=== PATIENT | male | born 1985 | race African-American/Black ===

== ENCOUNTER 2025-03-30 07:31 | Emergency (ER) | payer SELFPAY ==
[~2025-03-30] VITALS: Ht 172.7 cm; Wt 75.0 kg
[2025-03-30 07:36] VITALS: O2SAT 98
[2025-03-30] MEDS ORDERED: MAGNESIUM/ALUMINUM HYDROXIDE/SIMETHICONE 30ML UDC PO ONE (08:00)
[2025-03-30] MEDS ORDERED: ONDANSETRON HCL 4MG/2ML INJ IV ONE (08:00)
[2025-03-30] MEDS ORDERED: FAMOTIDINE 20MG/2ML VIAL IV ONE (08:00)
[2025-03-30] MEDS ORDERED: VISCOUS LIDOCAINE 2% 15 ML UDC MM ONE (08:00)
[2025-03-30] MEDS: ACETAMINOPHEN 1000MG/100ML 100 ML IV ONE (08:11)
[2025-03-30] MEDS: ONDANSETRON HCL 4MG/2ML INJ IV NR (08:12)
[2025-03-30] MEDS: MAGNESIUM/ALUMINUM HYDROXIDE/SIMETHICONE 30ML UDC PO NR (08:12)
[2025-03-30] MEDS: VISCOUS LIDOCAINE 2% 15 ML UDC MM NR (08:12)
[2025-03-30] MEDS: FAMOTIDINE 20MG/2ML VIAL IV NR (08:12)
[2025-03-30 08:21] LABS: BASOPHILS % 0.6 % (0.0-2.0); EOSINOPHILS % 0.6 % (0.0-5.0); HEMATOCRIT. 39.0 % (42.0-52.0); HEMOGLOBIN. 12.8 g/dL (14.0-18.0); LYMPHOCYTES % 11.7 % (20.0-50.0); MEAN PLATELET VOLUME 7.4 fl (7.4-10.4); MONOCYTES % 8.7 % (2.0-8.0); NEUTROPHILS % 78.4 % (40.0-76.0); PLATELET 196 x1000/uL (130-400); RED BLOOD CELL COUNT 4.42 mill/uL (4.7-6.1); RED CELL DISTRIBUTION WIDTH 13.7 % (11.6-14.6)
[2025-03-30 08:53] LABS: CREATININE 1.4 mg/dL (0.6-1.3); UREA NITROGEN BLOOD 13 mg/dL (9-23)
[2025-03-30 08:59] LABS: INFLUENZA TYPE A Presumptive Negative (Pres. Neg.); INFLUENZA TYPE B Presumptive Negative (Pres. Neg.)
[2025-03-30] MEDS: MORPHINE SULFATE 4 MG/ML INJ (FOR IV/IM USE) IV ONE (09:11)
[2025-03-30] MEDS ORDERED: ONDA4TAB50 PO (11:33)
[2025-03-30 12:09] VITALS: BP 100/47; PULSE 87; RESP 13; TEMP 37.1; O2SAT 97
== END 2025-03-30 12:12 | disposition home or self-care (01) ==
LOC: ER 07:31 → EDBEDREQ 10:39 → EDBEDREQTM 10:39 → CANBEDREQ 11:45 → ER 12:12
DX: K52.9 Noninfective gastroenteritis and colitis, unspecified (principal); Z20.822 Contact with and (suspected) exposure to COVID-19
CPT/HCPCS: 99285; 74176; 96365; 96375; 71045; 87426; 80048; 85025; 87804 ×2; 36415; J1308; J2405; J2270; J0131

== ENCOUNTER 2025-03-31 15:21 | Inpatient (IN) | payer SELFPAY ==
[~2025-03-31] VITALS: Ht 152.4 cm; Wt 81.6 kg
[~2025-03-31 15:21] MED LIST: ONDA4TAB50 PO
[2025-03-31 15:31] VITALS: O2SAT 100
[2025-03-31 17:20] LABS: CLARITY URINE CLEAR (CLEAR); COLOR URINE YELLOW (YELLOW); GLUCOSE URINE NEGATIVE (NEGATIVE); KETONES URINE 1+ (NEGATIVE); LEUKOCYTE ESTERASE URINE NEGATIVE (NEGATIVE); NITRITE URINE NEGATIVE (NEGATIVE); OCCULT BLOOD URINE 1+ (NEGATIVE); PH URINE 6.0 (4.5-8.0); PROTEIN URINE 1+ (NEGATIVE); SPECIFIC GRAVITY URINE 1.030 (1.005-1.030); UROBILINOGEN URINE 0.2 E.U./dL (0.2-1.0)
[2025-03-31 18:07] LABS: BASOPHILS % 0.9 % (0.0-2.0); EOSINOPHILS % 0.1 % (0.0-5.0); HEMATOCRIT. 37.6 % (42.0-52.0); HEMOGLOBIN. 12.3 g/dL (14.0-18.0); LYMPHOCYTES % 17.1 % (20.0-50.0); MEAN PLATELET VOLUME 7.6 fl (7.4-10.4); MONOCYTES % 12.1 % (2.0-8.0); NEUTROPHILS % 69.8 % (40.0-76.0); PLATELET 134 x1000/uL (130-400); RED BLOOD CELL COUNT 4.25 mill/uL (4.7-6.1); RED CELL DISTRIBUTION WIDTH 13.9 % (11.6-14.6)
[2025-03-31 18:24] LABS: CREATININE 1.5 mg/dL (0.6-1.3)
[2025-03-31 18:25] LABS: UREA NITROGEN BLOOD 10 mg/dL (9-23)
[2025-03-31] MEDS: MAGNESIUM/ALUMINUM HYDROXIDE/SIMETHICONE 30ML UDC PO ONE (18:25)
[2025-03-31] MEDS: ONDANSETRON HCL 4MG/2ML INJ IV ONE (18:56)
[2025-03-31] MEDS: FAMOTIDINE 20MG/2ML VIAL IV ONE (18:57)
[2025-03-31 19:25] LABS: INFLUENZA TYPE A Detected (Pres. Neg.); INFLUENZA TYPE B Presumptive Negative (Pres. Neg.)
[2025-03-31 19:26] LABS: RESPIRATORY SYNCYTIAL VIRUS Not Detected (Not Detectd)
[2025-03-31 20:00] LABS: WBC URINE NONE SEEN /hpf (0-2)
[2025-03-31 20:01] LABS: BACTERIA URINE 1+; SQUAMOUS EPITHELIAL CELL URINE FEW /lpf (RARE/1+)
[2025-03-31] MEDS: LACTATED RINGERS 1,000 ML IV ONE (20:16)
[2025-03-31] MEDS: ACETAMINOPHEN 1000MG/100ML 100 ML IV ONE (20:16)
[2025-03-31 20:49] LABS: PROTEIN TOTAL 7.1 g/dL (6.0-8.3)
[2025-03-31 20:51] LABS: ASPARTATE AMINOTRANSFERASE 53 IU/L (<34); BILIRUBIN DIRECT 0.1 mg/dL (<=3.0); BILIRUBIN TOTAL 0.4 mg/dL (0.1-1.0)
[2025-04-01] MEDS ORDERED: HYDROCODONE/ACETAMINOPHEN 5/325MG TABLET PO PRN
[2025-04-01] MEDS ORDERED: ACETAMINOPHEN 650MG/20.3ML UDC PO PRN
[2025-04-01] MEDS: SODIUM CHLORIDE 0.9% 1,000 ML IV SCH
[2025-04-01] MEDS ORDERED: ONDANSETRON HCL 4MG TABLET PO PRN
[2025-04-01 00:18] VITALS: BP 124/77; PULSE 65; RESP 16; TEMP 36.9184
[2025-04-01] MEDS ORDERED: NALOXONE HCL 0.4MG/ML VIAL IV PRN ×2 (01:00→13:45)
[2025-04-01] MEDS: ACETAMINOPHEN 325MG TABLET PO PRN (01:03)
[2025-04-01 08:00] VITALS: BP 113/70; PULSE 60; RESP 18; TEMP 35.6; O2SAT 96
[2025-04-01 08:48] LABS: *AMPHETAMINES SCREEN URINE NEGATIVE (NEGATIVE); *BARBITURATES SCREEN URINE NEGATIVE (NEGATIVE); *BENZODIAZEPINES SCREEN URINE NEGATIVE (NEGATIVE); *COCAINE SCREEN URINE NEGATIVE (NEGATIVE); METHADONE URINE SCREEN NEGATIVE (NEGATIVE)
[2025-04-01 08:49] LABS: CANNABINOID URINE SCREEN PRESUMPTIVE POSITIVE (NEGATIVE); ECSTASY MDMA SCREEN URINE NEGATIVE (NEGATIVE); OPIATES URINE SCREEN PRESUMPTIVE POSITIVE (NEGATIVE); PHENCYCLIDINE URINE SCREEN NEGATIVE (NEGATIVE)
[2025-04-01] MEDS: OSELTAMIVIR 75MG CAPSULE PO SCH (09:25)
[2025-04-01 12:00] VITALS: BP 115/76; PULSE 70; RESP 18; TEMP 35.8; O2SAT 96
[2025-04-01] MEDS ORDERED: LOPERAMIDE HCL 2MG CAPSULE PO PRN (13:45)
[2025-04-01 16:00] VITALS: BP 111/72; PULSE 65; RESP 19; TEMP 35.9; O2SAT 95
[2025-04-01] MEDS ORDERED: TAM75 MT (18:02)
[2025-04-01 20:00] VITALS: BP 124/77; PULSE 68; RESP 18; TEMP 36.2; O2SAT 97
[2025-04-02] VITALS: BP 120/70; PULSE 65; RESP 17; TEMP 36.2; O2SAT 98
[2025-04-02 04:00] VITALS: BP 125/77; PULSE 60; RESP 17; TEMP 36.3; O2SAT 98
[2025-04-02 08:00] VITALS: BP 111/73; PULSE 68; RESP 18; TEMP 37.5; O2SAT 96
[2025-04-02 12:00] VITALS: BP 114/72; PULSE 66; RESP 18; TEMP 36.3; O2SAT 97
[2025-04-02 15:47] VITALS: BP 110/73; PULSE 72; RESP 18; TEMP 98.8
[2025-04-02 16:00] VITALS: BP 110/73; PULSE 72; RESP 18; TEMP 36.1; O2SAT 97
== END 2025-04-02 17:51 | disposition home or self-care (01) ==
LOC: ER 15:21 → 8WST 17:50 → EDBEDREQ 21:13 → EDBEDREQTM 21:13
PROVIDERS: ADMIT Internal Medicine; ATTEND Internal Medicine
DX: K80.10 Calculus of gallbladder with chronic cholecystitis without obstruction (principal); N17.0 Acute kidney failure with tubular necrosis; D72.819 Decreased white blood cell count, unspecified; J10.1 Influenza due to other identified influenza virus with other respiratory manifestations; E66.9 Obesity, unspecified; Z20.822 Contact with and (suspected) exposure to COVID-19; F12.90 Cannabis use, unspecified, uncomplicated; Z68.35 Body mass index [BMI] 35.0-35.9, adult
CPT/HCPCS: 36415; 76705; 80048; 80076; 80305; 81003; 82010; 85025; 87420; 87426; 87804; 99285; A4606; J1308; J2405; J7050; J7120; J0131